=== PATIENT | female | born 1980 | race Caucasian/White ===

== ENCOUNTER → 2016-03-15 | Outpatient (CLI) | payer BC ==
[~2016-03-15] MED LIST: ALPR1TAB3 PO; ASCO10003 PO; B-CO1TAB53 PO; CPXI SQ; CTP1X PO; CYCL10TA6 PO; DICY10CA55 PO; DIVA250T PO; DIVA500T3 PO; GLGKIT SC; HYDR200T5 PO; INSPMPHMLG; LEVO200T6 PO; MORP1TAB12 PO; MORP30TA PO; OMEP40CA41 PO; PRED10PA4; SERT100T PO; TOPI100T20 PO; TOPI200T14 PO; ZFRODT/8 PO; ZOLP10TA6 PO
[2016-03-15 18:20] LABS: BLOOD UREA NITROGEN 12 mg/dl (7-18); GLUCOSE 210 mg/dl (70-99)
[2016-03-15 18:21] LABS: ALT/SGPT 12 U/L (12-78); AST/SGOT 8 U/L (15-37); BUN/CREATININE RATIO 14.6 (10-20); CALCIUM 8.7 mg/dl (8.5-10.1); CARBON DIOXIDE 24 mmol/L (21-32); CHLORIDE 108 mmol/L (98-107); CREATININE 0.84 mg/dl (0.60-1.20); POTASSIUM 4.1 mmol/L (3.5-5.1); SODIUM 142 mmol/L (136-145)
[2016-03-15 18:31] LABS: ALB/GLOB RATIO 0.8 (0.9-2); ALKALINE PHOSPHATASE 73 U/L (45-117); C-REACTIVE PROTEIN 0.64 mg/dl (0-0.29)
[2016-03-15 19:02] LABS: BASO % 0.2 %; BASO ABS # 0.01 K/uL (0-0.2); COMPLETE YES; EOS % 4.7 %; HEMATOCRIT 45.1 % (37-47); IG% 0.2 %; LARGE PLATELETS 1+; LYMPH % 39.9 %; LYMPH ABS # 2.48 K/uL (1.2-3.4); MEAN CELL VOLUME 86.9 fL (80-100); MEAN CORPUSCULAR HEMOGLOBIN 29.7 pg (25-34); MEAN CORPUSCULAR HGB CONC 34.1 g/dl (32-36); MEAN PLATELET VOLUME 13.3 fL (7.4-10.4); MONO % 4.8 %; NEUT % 50.2 %; PLATELET COUNT 48 K/uL (130-400); PLT ESTIMATE DECREASED; RED BLOOD COUNT 5.19 M/uL (4.2-5.4); WHITE BLOOD COUNT 6.21 K/uL (4.8-10.8)
--- NOTE | 2016-03-15 19:21 | DIAGNOSTIC IMAGING REPORT ---
MRI the right shoulder no contrast CLINICAL HISTORY: Right shoulder pain COMPARISON STUDY: Conventional radiographic study dated 09/30/2015 FINDINGS: Imaging was performed in the sagittal coronal and axial planes. There are no areas of marrow edema to indicate the bladder or occult fracture. There is a trace joint effusion. There is no evidence of pathologic muscular atrophy. There is no evidence of rotator cuff tear. The study is somewhat limited from a technical standpoint due to motion artifact. There is no evidence of bicipital tendon dislocation. There is slight indistinctness of the anterior inferior glenoid labrum. IMPRESSION: 1. Technically limited study secondary to motion artifact 2. No evidence of neoplasm. No evidence of occult fracture 3. No evidence of rotator cuff tear or significant tendinopathy Electronically signed by: Lon Osuna M.D. 03/15/2016 7:19 PM Dictated Date/Time: 03/15/2016 7:15 PM
[2016-03-16 06:53] LABS: ESTIMATED AVERAGE GLUCOSE 166 mg/dl; HA1C FLAG Normal (Normal)
== END | disposition home or self-care (01) ==
LOC: C.MRI 17:03
DX: E10.9 Type 1 diabetes mellitus without complications (principal); M79.2 Neuralgia and neuritis, unspecified; G35 Multiple sclerosis; M25.511 Pain in right shoulder; M25.512 Pain in left shoulder; M75.91 Shoulder lesion, unspecified, right shoulder; M75.92 Shoulder lesion, unspecified, left shoulder

== ENCOUNTER → 2016-03-29 | Outpatient (CLI) | payer BC ==
--- NOTE | 2016-03-29 18:18 | DIAGNOSTIC IMAGING REPORT ---
MRI left shoulder LEFT UPPER EXT JOINT WITHOUT CLINICAL HISTORY: SHOULDER PAIN pain TECHNIQUE: Multi axial MRI acquisition COMPARISON STUDY: None FINDINGS: Signal characteristics of all major osseous structures are unremarkable. There is moderate tendinopathy of the subscapularis tendon. No evidence for full-thickness rotator cuff tear. Biceps tendon is intact. Glenoid labrum is unremarkable. A partial tear of the subscapularis is possible. Study is degraded in part due to patient motion. IMPRESSION: 1. Moderate tendinopathy of the subscapularis. 2. Potential partial thickness tear of the subscapularis. 3. No evidence for full-thickness rotator cuff tear. Electronically signed by: Cipriano Lynch M.D. 03/29/2016 6:17 PM Dictated Date/Time: 03/29/2016 6:12 PM
== END | disposition home or self-care (01) ==
LOC: C.MRI 17:19
DX: M25.512 Pain in left shoulder (principal)

== ENCOUNTER → 2016-05-11 | Outpatient (CLI) | payer BC ==
[2016-05-11 14:44] LABS: HEMATOCRIT 44.5 % (37-47); MEAN CELL VOLUME 88.3 fL (80-100); MEAN CORPUSCULAR HEMOGLOBIN 29.6 pg (25-34); MEAN CORPUSCULAR HGB CONC 33.5 g/dl (32-36); MEAN PLATELET VOLUME 12.8 fL (7.4-10.4); PLATELET COUNT 55 K/uL (130-400); RED BLOOD COUNT 5.04 M/uL (4.2-5.4); WHITE BLOOD COUNT 6.55 K/uL (4.8-10.8)
[2016-05-11 15:06] LABS: ALT/SGPT 106 U/L (12-78); BLOOD UREA NITROGEN 19 mg/dl (7-18); BUN/CREATININE RATIO 26.7 (10-20); CALCIUM 8.5 mg/dl (8.5-10.1); CARBON DIOXIDE 26 mmol/L (21-32); CHLORIDE 108 mmol/L (98-107); CREATININE 0.72 mg/dl (0.60-1.20); GLUCOSE 142 mg/dl (70-99); POTASSIUM 3.7 mmol/L (3.5-5.1); SODIUM 142 mmol/L (136-145)
--- NOTE | 2016-05-11 15:09 | DIAGNOSTIC IMAGING REPORT ---
CHEST 2 VIEWS ROUTINE CLINICAL HISTORY: DIABETIC KETOACIDOSIS, CHEST Pain, seizure DISORDER DIABETIC KE[place] dyspnea COMPARISON STUDY: 12/14/2015 FINDINGS: The bones soft tissues and hemidiaphragms are normal. The cardiomediastinal silhouette is normal. The lungs are clear. The pulmonary vasculature is normal. IMPRESSION: Negative chest. Electronically signed by: Cipriano Lynch M.D. 05/11/2016 3:08 PM Dictated Date/Time: 05/11/2016 3:07 PM
[2016-05-11 15:13] LABS: MANUAL MICROSCOPIC REQUIRED? YES; URINE APPEARANCE SL CLOUDY (CLEAR); URINE COLOR YELLOW; URINE NITRITE NEG (NEG); URINE PH 5.5 (4.5-7.5); URINE SPECIFIC GRAVITY >= 1.030 (1.000-1.030); UROBILINOGEN NEG (NEG)
[2016-05-11 15:15] LABS: ALB/GLOB RATIO 0.9 (0.9-2); ALKALINE PHOSPHATASE 134 U/L (45-117); AMYLASE 22 U/L (25-115); AST/SGOT 137 U/L (15-37)
[2016-05-11 15:19] LABS: BASO % 0.2 %; BASO ABS # 0.01 K/uL (0-0.2); COMPLETE YES; IG% 0.3 %; LYMPH % 25.5 %; LYMPH ABS # 1.67 K/uL (1.2-3.4); MONO % 6.9 %; NEUT % 65.1 %
[2016-05-11 15:21] LABS: REVIEW REQ? NO; URINE BILIRUBIN NEG (NEG)
[2016-05-11 15:26] LABS: URINE BACTERIA 1+ (NEG); URINE MUCUS PRESENT (NONE PRSENT); URINE RBC 0-4 /hpf (0-4)
== END | disposition home or self-care (01) ==
LOC: C.CPL 13:48
DX: R07.9 Chest pain, unspecified (principal); E11.9 Type 2 diabetes mellitus without complications; R55 Syncope and collapse

== ENCOUNTER → 2016-05-17 | Outpatient (CLI) | payer BC ==
[2016-05-17 13:30] LABS: ALT/SGPT 52 U/L (12-78); BLOOD UREA NITROGEN 15 mg/dl (7-18); BUN/CREATININE RATIO 24.4 (10-20); CALCIUM 9.1 mg/dl (8.5-10.1); CARBON DIOXIDE 26 mmol/L (21-32); CHLORIDE 111 mmol/L (98-107); CREATININE 0.62 mg/dl (0.60-1.20); GLUCOSE 190 mg/dl (70-99); POTASSIUM 4.2 mmol/L (3.5-5.1); SODIUM 142 mmol/L (136-145)
[2016-05-17 13:33] LABS: ALB/GLOB RATIO 0.8 (0.9-2); ALKALINE PHOSPHATASE 123 U/L (45-117); AST/SGOT 30 U/L (15-37)
[2016-05-17 13:48] LABS: HEMATOCRIT 46.5 % (37-47); MEAN CELL VOLUME 90.1 fL (80-100); MEAN CORPUSCULAR HEMOGLOBIN 28.9 pg (25-34); RED BLOOD COUNT 5.16 M/uL (4.2-5.4); WHITE BLOOD COUNT 4.95 K/uL (4.8-10.8)
[2016-05-17 14:28] LABS: PLATELET COUNT 53 K/uL (130-400)
[2016-05-17 14:29] LABS: BASO % 0.2 %; BASO ABS # 0.01 K/uL (0-0.2); COMPLETE YES; EOS % 2.4 %; IG% 0.2 %; LYMPH % 46.3 %; LYMPH ABS # 2.29 K/uL (1.2-3.4); MONO % 9.9 %
== END | disposition home or self-care (01) ==
LOC: C.LABMFLN 09:49
PROVIDERS: ATTEND Physician Assistant
DX: E87.2 Acidosis (principal); G35 Multiple sclerosis; G43.009 Migraine without aura, not intractable, without status migrainosus

== ENCOUNTER → 2016-06-10 | Outpatient (CLI) | payer BC ==
[~2016-06-10] MED LIST changes: +ASCO500T16 PO; +B COTAB24 PO; +CLON0.2T PO; +DICY10CA12 PO; +DIME1CAP2 PO; +DIVA500T59 PO; +GADAVIST IV PRN; +HYDR50CA2 PO; +LINA1CAP2 PO; +LRS10 PO; +MOVANTIK PO; +NABU750T PO; +ONDA8TAB6 PO; +RIZA1TAB7; +SERT-234 PO
--- NOTE | 2016-06-10 12:43 | DIAGNOSTIC IMAGING REPORT ---
MRI OF THE CERVICAL SPINE COMBO CLINICAL HISTORY: Multiple sclerosis. COMPARISON STUDY: MRI of the cervical spine dated 11/03/2015. TECHNIQUE: MRI of the cervical spine is performed utilizing various T1 and T2-weighted sequences in the axial and sagittal planes. Contrast-enhanced sequences were acquired following the IV administration of 9 cc of Gadavist. Examination is significantly degraded by open MRI technique as well as motion artifact. FINDINGS: Cervical spine: Vertebral body height and alignment are maintained throughout the cervical spine. There is straightening of the cervical lordosis. Normal marrow signal intensity is preserved throughout the visualized bony structures. The atlantodental articulation appears preserved. The spinous processes appear intact. Intervertebral discs: Normal in height and signal intensity. Spinal cord: The cervical spinal cord is normal in morphology. Again seen is an 8 mm T2 hyperintense focus at the craniocervical junction. No additional cervical cord lesions are suspected. No abnormal enhancement is identified on the postcontrast images. C2-C3: Unremarkable. C3-C4: Unremarkable. C4-C5: Unremarkable. C5-C6: Unremarkable. C6-C7: Unremarkable. C7-T1: Unremarkable. Soft tissues: The prevertebral and paraspinous soft tissues are within normal limits. Brain parenchyma: A subcentimeter T2 hyperintense lesion is suggested within the right cerebellar hemisphere. Partially imaged brain parenchyma at the skull base is otherwise grossly normal. IMPRESSION: 1. There is a disc herniation, central canal stenosis, or neural foraminal narrowing seen throughout the cervical spine. 2. An 8 mm T2 hyperintense lesion is again suggested at the craniocervical junction. No additional core lesions are identified and there is no abnormal enhancement on the postcontrast sequence. Dictated: 06/10/2016 12:18 PM Transcribed: 06/10/2016 12:42 PM Mia Electronically signed by: Homero Hay M.D. 06/10/2016 1:00 PM Dictated Date/Time: 06/10/2016 12:18 PM
== END | disposition home or self-care (01) ==
LOC: C.OPENMRI 09:03
PROVIDERS: ATTEND Psychiatry & Neurology Neurology
DX: R53.83 Other fatigue (principal); G35 Multiple sclerosis; R53.1 Weakness; R20.0 Anesthesia of skin

== ENCOUNTER → 2016-06-10 | Outpatient (CLI) | payer BC ==
[~2016-06-10] MED LIST changes: -GADAVIST IV PRN
--- NOTE | 2016-06-10 12:27 | DIAGNOSTIC IMAGING REPORT ---
MRI brain BRAIN COMBO FOR IAC CLINICAL HISTORY: ASYMMETRIC HEARING LOSS, RT EAR, W/RICK TECHNIQUE: MRI multi axial acquisition pre and post gadolinium enhancement COMPARISON STUDY: 11/03/2015 FINDINGS: Normal study overall. Several small foci of increased signal unchanged. No new interval or progressive findings. No abnormal postcontrast enhancement. Sella and parasellar regions are unremarkable. Internal auditory canals are symmetric. IMPRESSION: 1. Several very small foci of increased signal unchanged from at least 2 prior exams. 2. Study is otherwise negative. 3. No evidence for abnormal postcontrast enhancement. Electronically signed by: Cipriano Lynch M.D. 06/10/2016 12:25 PM Dictated Date/Time: 06/10/2016 12:16 PM
== END | disposition home or self-care (01) ==
LOC: C.OPENMRI 09:13
DX: H91.8X1 Other specified hearing loss, right ear (principal)

== ENCOUNTER → 2016-09-10 | Outpatient (CLI) | payer BC, OTHER ==
[~2016-09-10] MED LIST changes: -ASCO500T16 PO; -B COTAB24 PO; -CLON0.2T PO; -DICY10CA12 PO; -DIME1CAP2 PO; -DIVA500T59 PO; -HYDR50CA2 PO; -LINA1CAP2 PO; -LRS10 PO; -MOVANTIK PO; -NABU750T PO; -ONDA8TAB6 PO; -RIZA1TAB7; -SERT-234 PO
[2016-09-10 18:15] LABS: URINE APPEARANCE CLEAR (CLEAR); URINE COLOR DK YELLOW; URINE EPITHELIAL CELL AUTO >30 /lpf (0-5); URINE NITRITE NEG (NEG); URINE PH 6.5 (4.5-7.5); URINE SPECIFIC GRAVITY 1.024 (1.000-1.030); UROBILINOGEN NEG (NEG); ZZUR CULT IF INDIC CLEAN CATCH NO
[2016-09-10 18:27] LABS: ALT/SGPT 22 U/L (12-78); BLOOD UREA NITROGEN 13 mg/dl (7-18); BUN/CREATININE RATIO 17.6 (10-20); CALCIUM 8.8 mg/dl (8.5-10.1); CARBON DIOXIDE 26 mmol/L (21-32); CHLORIDE 112 mmol/L (98-107); CREATININE 0.75 mg/dl (0.60-1.20); GLUCOSE 121 mg/dl (70-99); POTASSIUM 3.8 mmol/L (3.5-5.1); SODIUM 143 mmol/L (136-145)
[2016-09-10 18:30] LABS: MANUAL MICROSCOPIC REQUIRED? NO; REVIEW REQ? YES; URINE BILIRUBIN NEG (NEG)
[2016-09-10 18:30] LABS: ALKALINE PHOSPHATASE 69 U/L (45-117); AST/SGOT 11 U/L (15-37)
[2016-09-10 18:38] LABS: C-REACTIVE PROTEIN < 0.29 mg/dl (0-0.29); FERRITIN 18.2 ng/ml (8.0-388.0); RHEUMATOID FACTOR < 10.0 U/mL (0-15); THYROID STIMULATING HORMONE 0.205 uIu/ml (0.300-4.500)
[2016-09-10 18:55] LABS: LYME DISEASE AB IGM NEG (NEG)
[2016-09-10 18:58] LABS: LYME DISEASE AB IGG NEG (NEG)
[2016-09-10 19:00] LABS: RATIO 6.9 mcg/mg (0-30.0)
[2016-09-10 21:13] LABS: BASO % 0.2 %; BASO ABS # 0.01 K/uL (0-0.2); COMPLETE YES; EOS % 1.4 %; IG% 0.5 %; LYMPH % 30.3 %; LYMPH ABS # 1.99 K/uL (1.2-3.4); MEAN CELL VOLUME 90.7 fL (80-100); MEAN CORPUSCULAR HEMOGLOBIN 30.5 pg (25-34); MEAN CORPUSCULAR HGB CONC 33.6 g/dl (32-36); MONO % 5.8 %; NEUT % 61.8 %; PLATELET COUNT 47 K/uL (130-400); PLT ESTIMATE DECREASED; RED BLOOD COUNT 5.18 M/uL (4.2-5.4); WHITE BLOOD COUNT 6.56 K/uL (4.8-10.8)
[2016-09-11 06:16] LABS: ESTIMATED AVERAGE GLUCOSE 143 mg/dl; HA1C FLAG Normal (Normal)
--- NOTE | 2016-09-16 11:10 | CODING QUERY MEDICAL NECESSITY ---
CQSUPPORTING DIAGNOSIS NEEDED A supporting diagnosis is required for the test/procedure performed on this patient in order for us to be reimbursed by the patient's insurance. Please provide a supporting diagnosis for the following test/procedure listed below next to the test name along with your signature. *If there is no additional diagnosis for this patient that would support the following test/procedure please document that below next to the test/procedure. Test(s)/Procedure(s) that require a supporting diagnosis: DOS 09/10/16 VITAMIN D TEST Provider Signature: Date: Thank you Davina Arroyo Health Information Management Once completed, please kindly fax back to [phone] For questions please call [phone]
== END | disposition home or self-care (01) ==
LOC: C.LABMFLN 14:50
PROVIDERS: ATTEND Psychiatry & Neurology Neurology
DX: M19.90 Unspecified osteoarthritis, unspecified site (principal); G62.9 Polyneuropathy, unspecified; R53.83 Other fatigue; E03.9 Hypothyroidism, unspecified; E10.9 Type 1 diabetes mellitus without complications; G35 Multiple sclerosis; E55.9 Vitamin D deficiency, unspecified

== ENCOUNTER → 2016-11-05 | Outpatient (CLI) | payer BC, OTHER ==
[2016-11-05 18:12] LABS: MEAN CORPUSCULAR HGB CONC 34.2 g/dl (32-36)
[2016-11-05 18:26] LABS: HEMATOCRIT 46.5 % (37-47); MEAN CELL VOLUME 92.1 fL (80-100); MEAN CORPUSCULAR HEMOGLOBIN 31.5 pg (25-34); RED BLOOD COUNT 5.05 M/uL (4.2-5.4); WHITE BLOOD COUNT 7.97 K/uL (4.8-10.8)
[2016-11-05 18:32] LABS: PLATELET COUNT 53 K/uL (130-400)
[2016-11-05 18:34] LABS: BASO % 0.3 %; BASO ABS # 0.02 K/uL (0-0.2); COMPLETE YES; EOS % 0.8 %; IG% 0.4 %; LYMPH % 21.3 %; MONO % 5.9 %; NEUT % 71.3 %
[2016-11-05 18:49] LABS: ALB/GLOB RATIO 0.9 (0.9-2); ALKALINE PHOSPHATASE 77 U/L (45-117); ALT/SGPT 16 U/L (12-78); AST/SGOT 10 U/L (15-37); BLOOD UREA NITROGEN 15 mg/dl (7-18); BUN/CREATININE RATIO 17.1 (10-20); C-REACTIVE PROTEIN < 0.29 mg/dl (0-0.29); CALCIUM 9.2 mg/dl (8.5-10.1); CARBON DIOXIDE 21 mmol/L (21-32); CHLORIDE 108 mmol/L (98-107); FERRITIN 104.2 ng/ml (8.0-388.0); POTASSIUM 4.1 mmol/L (3.5-5.1); RHEUMATOID FACTOR < 10.0 U/mL (0-15); SODIUM 137 mmol/L (136-145); THYROID STIMULATING HORMONE 0.159 uIu/ml (0.300-4.500)
[2016-11-05 19:52] LABS: GLUCOSE 416 mg/dl (70-99)
[2016-11-05 20:02] LABS: BETA-HYDROXYBUTYRATE 19.06 mg/dL (0.2-2.81)
[2016-11-06 06:04] LABS: ESTIMATED AVERAGE GLUCOSE 148 mg/dl; HA1C FLAG Normal (Normal)
== END | disposition home or self-care (01) ==
LOC: C.LABMFLN 13:54
DX: G62.9 Polyneuropathy, unspecified (principal); M19.90 Unspecified osteoarthritis, unspecified site; E10.9 Type 1 diabetes mellitus without complications; E03.9 Hypothyroidism, unspecified

== ENCOUNTER → 2017-01-08 | Outpatient (CLI) | payer BC, OTHER | END | disposition home or self-care (01) | LOC: C.LABSPEC 15:27 | PROVIDERS: ATTEND Registered Nurse | DX: R19.7 Diarrhea, unspecified (principal) ==

== ENCOUNTER → 2017-01-13 | Outpatient (CLI) | payer BC, OTHER ==
[2017-01-13 18:07] LABS: MEAN CORPUSCULAR HGB CONC 33.3 g/dl (32-36)
[2017-01-13 18:13] LABS: HEMATOCRIT 47.4 % (37-47); MEAN CELL VOLUME 91.3 fL (80-100); MEAN CORPUSCULAR HEMOGLOBIN 30.4 pg (25-34); RED BLOOD COUNT 5.19 M/uL (4.2-5.4); WHITE BLOOD COUNT 3.88 K/uL (4.8-10.8)
[2017-01-13 18:21] LABS: ALT/SGPT 13 U/L (12-78); BLOOD UREA NITROGEN 11 mg/dl (7-18); BUN/CREATININE RATIO 15.9 (10-20); CALCIUM 8.7 mg/dl (8.5-10.1); CARBON DIOXIDE 23 mmol/L (21-32); CHLORIDE 107 mmol/L (98-107); CREATININE 0.72 mg/dl (0.60-1.20); GLUCOSE 261 mg/dl (70-99); POTASSIUM 4.5 mmol/L (3.5-5.1); SODIUM 138 mmol/L (136-145)
[2017-01-13 18:24] LABS: ALKALINE PHOSPHATASE 76 U/L (45-117); AST/SGOT 8 U/L (15-37)
[2017-01-13 18:44] LABS: BASO % 0.3 %; BASO ABS # 0.01 K/uL (0-0.2); COMPLETE YES; EOS % 1.3 %; IG% 0.5 %; LYMPH % 40.7 %; LYMPH ABS # 1.58 K/uL (1.2-3.4); NEUT % 49.2 %; PLATELET COUNT 42 K/uL (130-400); PLT ESTIMATE SIGNIFIC DECREASED
== END | disposition home or self-care (01) ==
LOC: C.LABMFLN 15:35
PROVIDERS: ATTEND Physician Assistant
DX: G35 Multiple sclerosis (principal); E55.9 Vitamin D deficiency, unspecified

== ENCOUNTER 2017-01-31 08:08 | Day surgery (SDC) | payer BC, OTHER ==
[~2017-01-31] VITALS: Ht 162.6 cm; Wt 88.5 kg
[~2017-01-31 08:08] MED LIST changes: -ASCO10003 PO; +ASCO500T16 PO; +B COTAB24 PO; -B-CO1TAB53 PO; +CLON0.2T PO; -CPXI SQ; -CTP1X PO; -CYCL10TA6 PO; +DICY10CA12 PO; -DICY10CA55 PO; +DIME1CAP2 PO; -DIVA250T PO; -DIVA500T3 PO; +DIVA500T59 PO; -GLGKIT SC; -HYDR200T5 PO; +HYDR50CA2 PO; +LINA1CAP2 PO; +LRS10 PO; +MOVANTIK PO; +NABU750T PO; +ONDA8TAB6 PO; -PRED10PA4; +RIZA1TAB7; +SERT-234 PO; -SERT100T PO; -TOPI100T20 PO; -ZFRODT/8 PO; -ZOLP10TA6 PO
[2017-01-31] MEDS ORDERED: QUET1TAB32 PO (09:23)
[2017-01-31 09:24] VITALS: BP 130/79; PULSE 88; TEMP 36.9; O2SAT 95; Ht 162.6 cm; Wt 88.5 kg
[2017-01-31] MEDS ORDERED: NURSING VERBAL MED ORDER ONE (09:45)
[2017-01-31 10:29] LABS: PLATELET COUNT 61 K/uL (130-400)
[2017-01-31 10:53] LABS: PLT ESTIMATE DECREASED
[2017-01-31 11:35] VITALS: BP 103/61; PULSE 85; TEMP 36.8; O2SAT 94
--- NOTE | 2017-01-31 11:56 | Discharge Instructions ---
Discharge Instructions Procedure Procedure Date: Jan 31, 2017. Reason for visit: Ms, Encephalopathy *W/Opening Pressure. Discharge Discharge Date: Jan 31, 2017. Discharge Diagnosis: MS, encephalopathy Instructions Activity Recommendations: 1 Day-May resume regular activity Return to School/Work: no limitations Recommended Home Diet: Resume Previous Diet Allergies Coded Allergies: Adhesives (Verified Allergy, Intermediate, RED,BLISTERING SKIN, 01/31/17) Carbamazepine (Verified Allergy, Intermediate, HIVES, 01/31/17) Latex1 -Allergic Contact Dermititis (Verified Allergy, Intermediate, RASH , 01/31/17) Metoclopramide (Verified Allergy, Intermediate, distonia, 01/31/17) Iodinated Diagnostic Agents (Verified Adverse Reaction, Severe, acute renal failure, 01/31/17) Bobbi Fleming Recommendations: Call your doctor if: * Temperature above 101 degrees * Pain not relieved by pain medicine ordered * There is increased drainage or redness from any incision * You have any unanswered questions or concerns. Your Doctors Instructions noted above were prepared by provider Lon Osuna. Patient Signature Section: Patient Instructions Signature Page Julia Giron Patient (or Guardian) Signature/Date: I have read and understand the instructions given to me by my caregivers. Caregiver/RN/Doctor Signature/Date: The above-named patient and/or guardian has received patient instructions on this date. + Original Patient Signature Page (only) stays with chart. Please make copy for patient.
[2017-01-31] MEDS ORDERED: ACETAMINOPHEN 500 MG TAB PO PRN (12:00)
--- NOTE | 2017-01-31 12:01 | DIAGNOSTIC IMAGING REPORT ---
LUMBAR PUNCTURE DIAGNOSTIC CLINICAL HISTORY: PAIN orbital sclerosis. Encephalopathy. COMPARISON STUDY: 07/26/2015 FINDINGS: 12 seconds of fluoroscopic time was utilized. A single fluoroscopic spot images were saved. A timeout was performed. The risks of the procedure were explained the patient informed consent was obtained. The patient was prepped and draped in sterile fashion. The skin was anesthetized 1% lidocaine. Under fluoroscopic guidance, a puncture was performed the L4-5 level, utilizing a 20-gauge spinal needle. The opening pressure was 21 cm of H2O. At the referring physician's request, a high volume of fluid was removed. Under gravity drip, 15 cc of clear CSF was obtained and into 4 tubes for subsequent laboratory analysis as specified by the referring clinician.. There were no immediate complications. IMPRESSION: Successful fluoroscopically guided diagnostic lumbar puncture performed the L4-5 level. 15 cc of clear CSF was removed and sent for laboratory analysis. Electronically signed by: Lon Osuna M.D. 01/31/2017 12:00 PM Dictated Date/Time: 01/31/2017 11:57 AM
[2017-01-31 12:05] VITALS: BP 127/72; PULSE 86; TEMP 36.9; O2SAT 93
[2017-01-31 12:21] LABS: CSF APPEARANCE CLEAR; CSF COLOR COLORLESS
[2017-01-31 12:22] LABS: CSF APPEARANCE CLEAR; CSF COLOR COLORLESS; CSF XANTHOCHROMIC NO XANTHOCHROMIA
[2017-01-31 12:32] LABS: CSF TOTAL PROTEIN 35.5 mg/dl (15.0-45.0)
[2017-01-31 12:41] VITALS: BP 119/74; PULSE 77; TEMP 36.8; O2SAT 93
== END 2017-01-31 12:57 | disposition home or self-care (01) ==
LOC: C.ACU 08:08
DX: G93.40 Encephalopathy, unspecified (principal); G35 Multiple sclerosis

== ENCOUNTER 2017-02-15 15:42 | Emergency (ER) | payer BC, OTHER ==
[~2017-02-15] VITALS: Ht 162.6 cm; Wt 93.8 kg
[~2017-02-15 15:42] MED LIST changes: +QUET1TAB32 PO
[2017-02-15 15:57] VITALS: TEMP 36.8; Ht 162.6 cm; Wt 93.8 kg
[2017-02-15] MEDS ORDERED: methylPREDNISolone 1000 MG in DEXTROSE 5% 250 ML IV ONE (16:15)
[2017-02-15] MEDS ORDERED: QUET1TAB30 PO (16:34)
[2017-02-15] MEDS ORDERED: SRQ25 PO (16:39)
[2017-02-15 17:53] VITALS: BP 132/89; PULSE 78; O2SAT 95
== END 2017-02-15 17:54 | disposition home or self-care (01) ==
LOC: C.EDB 15:43
DX: G35 Multiple sclerosis (principal)

== ENCOUNTER → 2017-02-27 | Outpatient (CLI) | payer BC, OTHER ==
[~2017-02-27] MED LIST changes: +ERGO500037 PO; -NABU750T PO; +NALO1TAB2 PO; +ONDA-170 PO; -ONDA8TAB6 PO; +QUET1TAB30 PO; -QUET1TAB32 PO; +SRQ/100 PO; +SRQ25 PO; +[UNRECOGNIZED DRUG - CODE] PO
[2017-02-27 18:27] LABS: BASO % 0.1 %; BASO ABS # 0.01 K/uL (0-0.2); EOS % 1.7 %; EOS ABS # 0.14 K/uL (0-0.5); HEMATOCRIT 42.7 % (37-47); HEMOGLOBIN 14.6 g/dL (12.0-16.0); LYMPH % 30.1 %; LYMPH ABS # 2.48 K/uL (1.2-3.4); MEAN CORPUSCULAR HEMOGLOBIN 31.1 pg (25-34); MEAN CORPUSCULAR HGB CONC 34.2 g/dl (32-36); MEAN PLATELET VOLUME 12.9 fL (7.4-10.4); MONO % 5.6 %; MONO ABS # 0.46 K/uL (0.11-0.59); NEUT % 58.9 %; NEUT ABS # 4.85 K/uL (1.4-6.5); PLATELET COUNT 150 K/uL (130-400); RED CELL DISTRIBUTION WIDTH CV 13.9 % (11.5-14.5); RED CELL DISTRIBUTION WIDTH SD 45.6 fL (36.4-46.3); WHITE BLOOD COUNT 8.24 K/uL (4.8-10.8)
[2017-03-05 19:04] LABS: BORDETELLA PERTUSSIS FHA IGA 53 IU/mL; BORDETELLA PERTUSSIS FHA IGG 18 IU/mL; BORDETELLA PERTUSSIS PT IGG 4 IU/mL
== END | disposition home or self-care (01) ==
LOC: C.LABMFLN 15:54
PROVIDERS: ATTEND Internal Medicine Critical Care Medicine
DX: R13.10 Dysphagia, unspecified (principal); G35 Multiple sclerosis

== ENCOUNTER → 2017-05-19 | Outpatient (CLI) | payer BC, OTHER ==
[~2017-05-19] MED LIST changes: -ERGO500037 PO; +NABU750T PO; -NALO1TAB2 PO; -SRQ/100 PO; -[UNRECOGNIZED DRUG - CODE] PO
[2017-05-19 18:13] LABS: BLOOD UREA NITROGEN 14 mg/dl (7-18); CREATININE 0.63 mg/dl (0.60-1.20)
[2017-05-19 18:32] LABS: TRANSFERRIN 218 mg/dl (200-360)
== END | disposition home or self-care (01) ==
LOC: C.LABMFLN 15:23
DX: R53.83 Other fatigue (principal); L30.9 Dermatitis, unspecified; G35 Multiple sclerosis

== ENCOUNTER → 2017-05-30 | Outpatient (CLI) | payer BC, OTHER ==
[~2017-05-30] MED LIST changes: +GADAVIST IV PRN
--- NOTE | 2017-05-30 14:52 | DIAGNOSTIC IMAGING REPORT ---
MRI OF THE BRAIN WITHOUT AND WITH IV CONTRAST CLINICAL HISTORY: Multiple sclerosis. Altered mental status. Gait dysfunction. COMPARISON STUDY: MRI of the brain June 10, 2016. TECHNIQUE: Utilizing a 1.5 Lily magnet and dedicated coil, multiplanar, multiecho imaging of the brain was performed pre and postcontrast administration. IV administration of 10 mL of Gadavist contrast was uneventful. Thin cut FLAIR imaging was performed according to the multiple sclerosis protocol. FINDINGS: No foci of restricted diffusion. No acute intracranial hemorrhage, midline shift or mass effect is present. Brain volume is normal. Ventricular system is normal. The basilar cisterns are patent. There are no extra-axial collections. Flow-voids for the major intracranial vessels are present. A 9 mm T2 hyperintense focus within the right cerebellar hemisphere is unchanged since MRI of November 03, 2015. A few smaller white matter T2 hyperintense foci are also unchanged. No new foci are identified. There is no enhancement or restricted diffusion to suggest active demyelination. Calvarial signal is maintained. IMPRESSION: 1. No acute intracranial findings. 2. No change in multiple small foci of signal abnormality since MRI of November 13, 2015. No new areas of signal abnormality. No evidence for active demyelination. The findings remain nonspecific although could reflect a demyelinating disorder. Electronically signed by: Moe Cabrera M.D. 05/30/2017 2:51 PM Dictated Date/Time: 05/30/2017 2:45 PM
== END | disposition home or self-care (01) ==
LOC: C.MRI 13:05
DX: G35 Multiple sclerosis (principal); R26.89 Other abnormalities of gait and mobility; G93.40 Encephalopathy, unspecified; R41.82 Altered mental status, unspecified; M54.81 Occipital neuralgia; M79.1 Myalgia

== ENCOUNTER → 2017-09-16 | Outpatient (CLI) | payer OTHER ==
[~2017-09-16] MED LIST changes: +ERGO500037 PO; -GADAVIST IV PRN; -MOVANTIK PO; -NABU750T PO; +NALO1TAB2 PO; -QUET1TAB30 PO; +SRQ/100 PO
== END | disposition home or self-care (01) ==
LOC: C.RDSM 13:08
PROVIDERS: ATTEND Orthopaedic Surgery
DX: M25.561 Pain in right knee (principal)